=== PATIENT | male | born 1950 | race Caucasian/White ===

== ENCOUNTER 2019-04-06 13:37 | Emergency (ER) | payer MEDICARE, OTHER ==
[~2019-04-06] VITALS: Ht 170.2 cm; Wt 95.5 kg
[~2019-04-06 13:37] MED LIST: DOCU-144 PO; HYDR-4011 PO; NAR2I NS
[2019-04-06 13:44] VITALS: Ht 170.2 cm; Wt 95.5 kg
[2019-04-06] MEDS ORDERED: SOD CHLORIDE 0.9% 500 ML IV STA (14:19)
[2019-04-06] MEDS ORDERED: HYDROmorphONE 1 MG/ML SYG IV ONE (14:30)
[2019-04-06] MEDS ORDERED: ONDANSETRON 4 MG INJ IV ONE (14:30)
[2019-04-06] MEDS ORDERED: HYDROmorphONE 2 MG/ML SYG IV STA (14:44)
[2019-04-06 16:43] VITALS: BP 169/87; PULSE 67; RESP 18
== END 2019-04-06 16:45 | disposition home or self-care (01) ==
LOC: EDSEX 13:37 → E/R 13:37
DX: S76.911A Strain of unspecified muscles, fascia and tendons at thigh level, right thigh, initial encounter (principal); M79.604 Pain in right leg; W01.0XXA Fall on same level from slipping, tripping and stumbling without subsequent striking against object, initial encounter; Y92.9 Unspecified place or not applicable
CPT/HCPCS: 73552; 80053; 85025; 85610; 85730; 96374; 96375; 99284; J1170; J2405; J7040; 73550